=== PATIENT | female | born 1965 | race Caucasian/White ===

== ENCOUNTER 2021-02-14 11:26 | Emergency (ER) | payer OTHER ==
[2021-02-14 11:37] VITALS: BP 110/79
--- NOTE | 2021-02-14 11:51 | ED Physician Documentation ---
History of Present Illness - Stated complaint Stated Complaint: L EAR PX - Chief complaint Chief Complaint: Heent - Additonal information Additional information: 55-year-old female presents emergency department for evaluation of acute left ea r pain and discomfort. She has a sensation of fullness in the ear and feels like fluid is behind it. She does report chronic postnasal drip and recently traveled 2 weeks ago from [place] to [facility] to help care for her mom. She plans to travel back to [place] in about 72 hours. This morning when she is laying down on her left side she felt pain in the ear. No fevers no loss of taste or smell. She is not vaccinated against COVID-19 and declined screening today. Review of Systems Constitutional: denies: Fever, Chills Eyes: reports: Reviewed and negative Ears: reports: Ear pain. denies: Drainage/discharge, Tinnitus/ringing, Foreign body Nose: reports: Rhinorrhea / runny nose, Congestion. denies: Foreign Body Throat: reports: Sore throat Cardiac: reports: Reviewed and negative Respiratory: reports: Reviewed and negative GI: reports: Reviewed and negative : reports: Reviewed and negative PD PAST MEDICAL HISTORY - Allergies Allergies/Adverse Reactions: Allergies Allergy/AdvReac Type Severity Reaction Status Date / Time amoxicillin Allergy Emesis Verified 02/14/21 11:36 PD ED PE EXPANDED - General General: Alert, No acute distress - HEENT HEENT: Ears normal, Moist mucous membranes, Pharyngeal erythema. No: Swollen tonsils, Soft palate petecchiae - Neck Neck: Supple w/out meningeal sx. No: Adenopathy - Cardiac Cardiac: Regular Rate, Radial strong equal. No: Murmur Present - Respiratory Respiratory: Clear to ausultation jaleesa. No: Distress, Labored - Extremities Extremities: Normal. No: Deformity, Tenderness Results - Vitals Vitals: Vital Signs - 24 hr 02/14/21 11:32 Temperature 36.5 C Heart Rate 77 Respiratory 16 Rate Blood Pressure 110/79 O2 Saturation 98 Oxygen O2 Source Room air PD MEDICAL DECISION MAKING - ED course Complexity details: reviewed results, re-evaluated patient, d/w patient ED course: Well-appearing 55-year-old female presents emergency department for evaluation of acute left ear pain that began this a.m. This is in the setting of a history of chronic postnasal drip as well seasonal allergies. She recently traveled to [facility] from [place] few weeks ago and has not been taking Flonase. On exam there is no findings to suggest acute otitis media or otitis externa. Posterior oropharynx is mildly erythematous but no tonsillar exudate or soft palate asymmetry or swelling. Suspicion for acute bacterial infection is quite low. I did offer COVID-19 screening and she is unvaccinated but she declined this today. However the source of the ear pain is likely eustachian tube dysfunction. I recommended saline rinses to be followed by Flonase. Tylenol or ibuprofen for discomfort. Emergent return precautions were discussed for worsening symptoms. Departure - Departure Disposition: Home, Self Care Clinical Impression: Left ear pain Eustachian tube disorder Qualifiers: Laterality: left Qualified Code(s): H69.92 - Unspecified Eustachian tube disorder, left ear Condition: Stable Record reviewed to determine appropriate education?: Yes Comments: Payal you have nasal congestion, postnasal drip and left ear pain. On exam your ears are unremarkable and there is no signs of an infection in the ear. However what you likely have is a plugged eustachian tube causing the pressure and fullness in your ear. You were offered COVID-19 screening but you have declined that today. I do recommend that you rinse your sinuses with saline nasal spray and then use Flonase once daily. If at any point you feel that your symptoms are worsening, you develop fevers have ear drainage please return immediately to the ER for a second look.
== END 2021-02-14 12:24 | disposition home or self-care (01) ==
LOC: ED 11:26
DX: H69.92 Unspecified Eustachian tube disorder, left ear (principal)
CPT/HCPCS: 99281; 99282

== ENCOUNTER 2021-05-13 08:00 | Outpatient (CLI) | payer OTHER | END 2021-05-13 23:59 | disposition home or self-care (01) | LOC: LAB.S 08:00 | PROVIDERS: ATTEND Physician Assistant Medical | DX: M70.21 Olecranon bursitis, right elbow (principal) | CPT/HCPCS: 87070; 87205 ==